=== PATIENT | male | born 1980 | race Caucasian/White ===

== ENCOUNTER 2017-01-24 07:29 | Emergency (ER) | payer BC, OTHER ==
[~2017-01-24] VITALS: Ht 172.7 cm; Wt 104.3 kg
[~2017-01-24 07:29] MED LIST: OMEP20TA8 PO
[2017-01-24 07:57] LABS: BASO # 0.1 x10^3/uL (0.0-0.2); BASO % 1 % (0-3); EOS # 0.1 x10^3/uL (0.0-0.7); EOS % 2 % (0-3); HEMATOCRIT 42.1 % (39.0-53.0); HEMOGLOBIN 14.5 g/dL (13.0-17.5); LYMPH # 1.8 x10^3/uL (1.0-4.8); LYMPH % 25 % (24-48); MEAN CORPUSCULAR HEMOGLOBIN 30 pg (25-35); MEAN CORPUSCULAR HGB CONC 35 g/dL (31-37); MEAN CORPUSCULAR VOLUME 88 fL (79-100); MONO # 0.7 x10^3/uL (0.0-1.1); MONO % 11 % (0-9); NEUT # 4.3 x10^3uL (1.8-7.7); NEUT % 61 % (31-73); PLATELET COUNT 223 x10^3/uL (140-400); RED BLOOD COUNT 4.77 x10^6/uL (4.30-5.70); RED CELL DISTRIBUTION WIDTH 13.1 % (11.5-14.5)
[2017-01-24 08:10] LABS: ALBUMIN 3.8 g/dL (3.4-5.0); ALBUMIN/GLOBULIN RATIO 1.1 (1.0-1.7); CALCIUM 8.3 mg/dL (8.5-10.1); GFR 84.5; POTASSIUM 3.9 mmol/L (3.5-5.1); TOTAL BILIRUBIN 0.3 mg/dL (0.2-1.0); TOTAL PROTEIN 7.4 g/dL (6.4-8.2)
--- NOTE | 2017-01-24 08:19 | RAD ---
Chest, 2 views, 01/24/2017: History: Chest pain, cough Comparison is made to a study from 01/06/2016. The heart size and pulmonary vascularity are normal. No pulmonary infiltrates are seen. There is no evidence of pleural fluid. IMPRESSION: No acute cardiopulmonary abnormality is detected.
--- NOTE | 2017-01-24 08:53 | EKG ---
[address] [address] Test Date: 2017-01-24 Test Time: 07:39:30 Pat Name: ANUJ CHAVARRIA Department: Room: Gender: M Jewel Gauger: KENROY : 1980 Requested By: EILEEN GRIMALDO Order Number: [id number] Reading MD: Measurements Intervals [place] Rate: 85 P: 45 LA: 150 QRS: 43 QRSD: 80 T: 29 QT: 344 QTc: 414 Interpretive Statements SINUS RHYTHM QRS(T) CONTOUR ABNORMALITY CONSIDER ANTEROSEPTAL MYOCARDIAL DAMAGE RI6.01 Unconfirmed report No previous ECG available for comparison
[2017-01-24] MEDS ORDERED: HYDROcodone/APAP 5/325MG 1 TAB TABLET PO ONE (09:00)
[2017-01-24] MEDS ORDERED: IBUPROFEN 400 MG TABLET. PO ONE (09:00)
[2017-01-24 09:04] VITALS: BP 121/71
--- NOTE | 2017-01-24 15:58 | ED.ADGEN ---
Past History Past Medical History: No Pertinent History Past Surgical History: Other Alcohol Use: None Drug Use: None Adult General Chief Complaint Chief Complaint Cough, chest wall pain [facility] HPI Patient is a 36 year old male smoker presents with nonproductive cough, left- sided pleuritic chest wall pain worse with deep breathing and cough. Symptom onset was approximately 10 days ago. This morning, patient's states he states he broke out in a sweat. Patient denies nausea shortness breath, fever chills and sweats. No leg pain or swelling. Patient is not taking any medications or follow-up with a primary care physician. Review of Systems Review of Systems ROS as per HPI. Current Medications Current Medications Current Medications Medications (Trade) Dose Ordered Sig/Vivian Start Time Stop Time Status Last Admin Dose Admin Acetaminophen/ Hydrocodone Bitart (Lortab 5/325) 1 tab 1X ONCE 01/24/17 09:00 01/24/17 09:01 DC 01/24/17 09:00 1 TAB Ibuprofen (Motrin) 400 mg 1X ONCE 01/24/17 09:00 01/24/17 09:01 DC 01/24/17 09:00 400 MG Allergies Allergies Allergies Coded Allergies Type Severity Reaction Last Updated Verified No Known Drug Allergies 01/24/17 No Physical Exam Physical Exam Constitutional: Well developed, well nourished, no acute distress, non-toxic appearance. HENT: Normocephalic, atraumatic, bilateral external ears normal, oropharynx moist, no oral exudates, nose normal. Eyes: PERRLA, EOMI, conjunctiva normal. Neck: Normal range of motion, no tenderness. Cardiovascular:Heart rate regular rhythm, no murmur Lungs & Thorax: Respirations nonlabored, coarse rhonchi bilaterally. Reducible left-sided parasternal chest wall pain, tenderness Abdomen: Bowel sounds normal, soft, no tenderness. Skin: Warm, dry. Back: No tenderness. Extremities: No leg pain, swelling. Neurologic: Alert and oriented X 3, normal motor function, normal sensory function, no focal deficits noted. Psychologic: Affect normal, judgement normal, mood normal. Current Patient Data Vital Signs Vital Signs Date Time Temp Pulse Resp B/P (MAP) Pulse Ox O2 Delivery O2 Flow Rate FiO2 01/24/17 09:04 68 18 121/71 (88) 97 01/24/17 09:00 Room Air 01/24/17 07:39 98.1 Lab Results Laboratory Tests Test 01/24/17 07:44 White Blood Count 7.0 x10^3/uL (4.0-11.0) Red Blood Count 4.77 x10^6/uL (4.30-5.70) Hemoglobin 14.5 g/dL (13.0-17.5) Hematocrit 42.1 % (39.0-53.0) Mean Corpuscular Volume 88 fL (79-100) Mean Corpuscular Hemoglobin 30 pg (25-35) Mean Corpuscular Hemoglobin Concent 35 g/dL (31-37) Red Cell Distribution Width 13.1 % (11.5-14.5) Platelet Count 223 x10^3/uL (140-400) Neutrophils (%) (Auto) 61 % (31-73) Lymphocytes (%) (Auto) 25 % (24-48) Monocytes (%) (Auto) 11 % (0-9) H Eosinophils (%) (Auto) 2 % (0-3) Basophils (%) (Auto) 1 % (0-3) Neutrophils # (Auto) 4.3 x10^3uL (1.8-7.7) Lymphocytes # (Auto) 1.8 x10^3/uL (1.0-4.8) Monocytes # (Auto) 0.7 x10^3/uL (0.0-1.1) Eosinophils # (Auto) 0.1 x10^3/uL (0.0-0.7) Basophils # (Auto) 0.1 x10^3/uL (0.0-0.2) D-Dimer (Olamide) 0.19 mg/L (0.00-0.50) Sodium Level 143 mmol/L (136-145) Potassium Level 3.9 mmol/L (3.5-5.1) Chloride Level 108 mmol/L (98-107) H Carbon Dioxide Level 24 mmol/L (21-32) Anion Gap 11 (6-14) Blood Urea Nitrogen 12 mg/dL (8-26) Creatinine 1.0 mg/dL (0.7-1.3) Estimated GFR (Cockcroft-Gault) 84.5 BUN/Creatinine Ratio 12 (6-20) Glucose Level 85 mg/dL (70-99) Calcium Level 8.3 mg/dL (8.5-10.1) L Total Bilirubin 0.3 mg/dL (0.2-1.0) Aspartate Amino Transferase (AST) 19 U/L (15-37) Alanine Aminotransferase (ALT) 41 U/L (16-63) Alkaline Phosphatase 63 U/L (46-116) Creatine Kinase 109 U/L (39-308) Troponin I Quantitative < 0.017 ng/mL (0-0.055) Total Protein 7.4 g/dL (6.4-8.2) Albumin 3.8 g/dL (3.4-5.0) Albumin/Globulin Ratio 1.1 (1.0-1.7) EKG EKG [EKG: Normal sinus rhythm, rate 85, no acute ST-T wave changes] Radiology/Procedures Radiology/Procedures [Chest x-ray: No acute cardiopulmonary disease per radiology report.] Course & Med Decision Making Course & Med Decision Making Pertinent Labs and Imaging studies reviewed. (See chart for details) [Reproducible chest wall pain concerns that with pleurisy and costochondritis. Other dxs considered, but thought less likely. Recommend smoking cessation PCP follow-up] Final Impression Final Impression [1. bronchitis 2. pleurisy] Problems: Dragon Disclaimer Dragon Disclaimer This electronic medical record was generated, in whole or in part, using a voice recognition dictation system. EILEEN GRIMALDO DO Jan 24, 2017 15:58
== END 2017-01-24 09:05 | disposition home or self-care (01) ==
LOC: ER 07:29
DX: R09.1 Pleurisy (principal); J40 Bronchitis, not specified as acute or chronic
CPT/HCPCS: 36415; 71020; 80053; 82550; 84484; 85027; 85379; 93005; 99285-25

== ENCOUNTER 2021-06-09 13:39 | Observation (INO) | payer OTHER ==
[~2021-06-09] VITALS: Ht 172.7 cm; Wt 100.0 kg
[2021-06-09] MEDS ORDERED: IV NORMAL SALINE 1,000ML 1,000 ML IV ONE (14:00)
[2021-06-09] MEDS ORDERED: INSULIN REGULAR 100 UNIT/ML 3ML VIAL. SQ ONE (14:15)
[2021-06-09] MEDS ORDERED: ONDANSETRON PF 4 MG/2 ML VIAL. IVP PRN (14:45)
[2021-06-09] MEDS ORDERED: DEXTROSE 50% 25 GM / 50ML DISP.SYRIN. IV PRN (14:45)
--- NOTE | 2021-06-09 14:48 | PHYS DOC ---
Past History Past Medical History: No Pertinent History Past Surgical History: No Surgical History Alcohol Use: None Drug Use: None General Adult EDM: Chief Complaint: HYPERGLYCEMIA HPI: HPI: Patient is a [age] year old [sex] who presents with [] Review of Systems: Review of Systems: Constitutional: Denies fever or chills Eyes: Denies change in visual acuity HENT: Denies nasal congestion or sore throat Respiratory: Denies cough or shortness of breath Cardiovascular: Denies chest pain or edema GI: Denies abdominal pain, nausea, vomiting, bloody stools or diarrhea : Denies dysuria Musculoskeletal: Denies back pain or joint pain Integument: Denies rash Neurologic: Denies headache, focal weakness or sensory changes Endocrine: Denies polyuria or polydipsia Lymphatic: Denies swollen glands Psychiatric: Denies depression or anxiety Current Medications: Current Meds: Current Medications Medications (Trade) Dose Ordered Sig/Vivian Start Time Stop Time Status Last Admin Dose Admin Insulin Human Regular (HumuLIN R VIAL) 10 unit 1X ONCE 06/09/21 14:15 06/09/21 14:16 DC Sodium Chloride 1,000 ml @ 1,000 mls/hr 1X ONCE 06/09/21 14:00 06/09/21 14:59 Allergies: Allergies: Allergies Coded Allergies Type Severity Reaction Last Updated Verified No Known Drug Allergies 01/24/17 No Physical Exam: PE: Constitutional: Well developed, well nourished, no acute distress, non-toxic appearance. [] HENT: Normocephalic, atraumatic, bilateral external ears normal, oropharynx moist, no oral exudates, nose normal. [] Eyes: PERRLA, EOMI, conjunctiva normal, no discharge. [] Neck: Normal range of motion, no tenderness, supple, no stridor. [] Cardiovascular:Heart rate regular rhythm, no murmur [] Lungs & Thorax: Bilateral breath sounds clear to auscultation [] Abdomen: Bowel sounds normal, soft, no tenderness, no masses, no pulsatile masses. [] Skin: Warm, dry, no erythema, no rash. [] Back: No tenderness, no CVA tenderness. [] Extremities: No tenderness, no cyanosis, no clubbing, ROM intact, no edema. [] Neurologic: Alert and oriented X 3, normal motor function, normal sensory function, no focal deficits noted. [] Psychologic: Affect normal, judgement normal, mood normal. [] Current Patient Data: Labs: Laboratory Tests Test 06/09/21 13:53 Glucose (Fingerstick) 573 mg/dL (70-99) *H Vital Signs: Vital Signs Date Time Temp Pulse Resp B/P (MAP) Pulse Ox O2 Delivery O2 Flow Rate FiO2 06/09/21 13:54 98.1 103 18 157/85 (109) 95 Room Air EKG: EKG: [] Radiology/Procedures: Radiology/Procedures: [] Heart Score: Risk Factors: Risk Factors: DM, Current or recent (<one month) smoker, HTN, HLP, family history of CAD, obesity. Risk Scores: Score 0 - 3: 2.5% MACE over next 6 weeks - Discharge Home Score 4 - 6: 20.3% MACE over next 6 weeks - Admit for Clinical Observation Score 7 - 10: 72.7% MACE over next 6 weeks - Early Invasive Strategies Course & Med Decision Making: Course & Med Decision Making Pertinent Labs and Imaging studies reviewed. (See chart for details) [] Dragon Disclaimer: Dragon Disclaimer: This electronic medical record was generated, in whole or in part, using a voice recognition dictation system. Departure Departure: Impression: Primary Impression: Hyperglycemia Disposition: ADMITTED INPATIENT Admitting Physician: Jordy May Condition: STABLE Referrals: JORDY MAY MD (PCP) ARAVIND JOYNER DO Jun 09, 2021 14:48
[2021-06-09 14:54] LABS: BASO # 0.1 x10^3/uL (0.0-0.2); BASO % 1 % (0-3); EOS # 0.1 x10^3/uL (0.0-0.7); EOS % 1 % (0-3); HEMATOCRIT 45.6 % (39.0-53.0); HEMOGLOBIN 15.9 g/dL (13.0-17.5); LYMPH # 2.3 x10^3/uL (1.0-4.8); LYMPH % 23 % (24-48); MEAN CORPUSCULAR HEMOGLOBIN 31 pg (25-35); MEAN CORPUSCULAR HGB CONC 35 g/dL (31-37); MEAN CORPUSCULAR VOLUME 89 fL (79-100); MONO # 0.7 x10^3/uL (0.0-1.1); MONO % 7 % (0-9); NEUT # 7.1 x10^3uL (1.8-7.7); NEUT % 69 % (31-73); PLATELET COUNT 293 x10^3/uL (140-400); RED BLOOD COUNT 5.11 x10^6/uL (4.30-5.70); WHITE BLOOD COUNT 10.3 x10^3/uL (4.0-11.0)
--- NOTE | 2021-06-09 14:57 | RAD ---
Single view of the chest. 06/09/2021 2:45 PM Indication: Reason: cough Comparison: Chest radiograph January 24, 2017 Findings: There is no focal consolidation. There is no pleural effusion or pneumothorax. The cardiome diastinal silhouette and pulmonary vasculature are within normal limits. No acute osseous abnormaliti es are seen. Impression: No evidence of acute cardiopulmonary process. Electronically signed by: Santy Kraft MD (06/09/2021 2:55 PM) [id number]
[2021-06-09 15:07] LABS: ALBUMIN/GLOBULIN RATIO 1.1 (1.0-1.7); CALCIUM 8.5 mg/dL (8.5-10.1); GFR 82.3; MAGNESIUM 2.2 mg/dL (1.8-2.4); POTASSIUM 4.2 mmol/L (3.5-5.1); TOTAL BILIRUBIN 0.4 mg/dL (0.2-1.0); TOTAL PROTEIN 7.8 g/dL (6.4-8.2)
[2021-06-09 15:51] LABS: BACTERIA,URINE 0 /HPF (0-FEW); BILIRUBIN,URINE NEG (NEG); CLARITY,URINE CLEAR; COLOR,URINE YELLOW; GLUCOSE,URINE >=1000 mg/dL (NEG); NITRITE,URINE NEG (NEG); RBC,URINE 0 /HPF (0-2); UROBILINOGEN,URINE 0.2 mg/dL (0.2 mg/dL); WBC,URINE 0 /HPF (0-4)
[2021-06-09] MEDS ORDERED: NICOTINE 21MG PATCH. TD ONE (16:45)
--- NOTE | 2021-06-09 17:15 | NUR ---
PATIENT IS 41 Y O MALE ARRIVED VIA EMS. PATIENT IS A/O X 4 ABLE TO AMBULATE. PATIENT WAS ORIENTED TO ROOM AND HOSPITAL POLICIES. PATIENT STATED " THERE ARE BUNCH OF LIARS WORKING IN THIS HOSPITAL". PATIENT WAS UPSET TO HEAR THAT HE CAN'T HAVE ANY VISITORS, STATED THAT HE WAS TOLD IN ED THAT HE COULD HAVE HIS COMING TO SEE HIM. PATIENT WAS INFORMED THAT HE IS NOT ALLOWED TO HAVE VISITORS.
[2021-06-09 17:28] VITALS: BP 168/106
[2021-06-09] MEDS: IV NORMAL SALINE 1,000ML 1,000 ML IV SCH ×2 (17:39→22:45)
[2021-06-09] MEDS: INSULIN LISPRO 300 UNITS/3 ML VIAL. SQ SCH (17:40)
[2021-06-09] MEDS: INSULIN GLARGINE SYRINGE. SQ SCH (21:12)
--- NOTE | 2021-06-09 22:05 | NUR ---
IV infiltrated. telephoned. PT requested no IV. MD agreed and IV discontinued. PT encouraged to continue drinking water.
[2021-06-09 22:39] VITALS: BP 142/87
[2021-06-10 05:36] VITALS: BP 120/78
[2021-06-10] MEDS: INSULIN LISPRO 300 UNITS/3 ML VIAL. SQ SCH (08:15)
[2021-06-10] MEDS: INSULIN GLARGINE SYRINGE. SQ SCH (08:15)
--- NOTE | 2021-06-10 09:51 | NUR ---
Nursing note PT in bed, blood glucose check and insulin administered. assessments done. PT verbalized no order needs.
[2021-06-10 10:48] VITALS: BP 148/93
--- NOTE | 2021-06-10 11:13 | NUR ---
Nursing note PT discharge from the hospital, vitals within normal range. PT alert and oriented x4. PT ambulated off the floor and was picked up by his .
--- NOTE | 2021-06-10 12:31 | HP ---
DATE OF SERVICE: 06/10/2021 ADMIT DATE: 06/09/2021 HISTORY OF PRESENT ILLNESS: This is a 41-year-old gentleman who came in with blurred vision, double vision. The patient has been having problems with his gait. He has been urinating about every 20 minutes or so. He has been having problems focusing as noted. He was quite concerned about this, came in. His pulse was elevated and his labs showed that he had a blood sugar of approximately 570, which is a new onset for him, it is a poorly controlled diabetic, new onset. Blood pressure otherwise was also slightly elevated, 168/106. As a result of this, the patient was admitted for further evaluation, hydration and control of his out of control blood sugar as well as to receive diabetic education. PAST MEDICAL HISTORY: GERD, tobacco abuse. FAMILY HISTORY: Significant for diabetes. ALLERGIES: No known allergies. MEDICATIONS: Prilosec 20 mg a day for GERD. SOCIAL HISTORY: Has about a [id number] history of smoking, occasional alcohol use. Full code. REVIEW OF SYSTEMS: As noted. He denies any headaches. He does have blurred vision, double vision. Does have dry mouth. Does have reflux. Denies chest pain, shortness of breath. Denies abdominal pain. Denies any neurological symptoms otherwise. Denies any tingling or numbness in the feet and basically stable there. PHYSICAL EXAMINATION: GENERAL: He is a pleasant white male, looking stated age of 41. VITAL SIGNS: Blood pressure 168/106, respiratory rate 20, pulse 94, afebrile, 96% on room air. HEENT: The patient's head was atraumatic, normocephalic. Eyes: PERRLA without jaundice. The mouth and throat were normal. NECK: Supple without JVD or thyromegaly. LUNGS: Diminished throughout, but clear. CARDIOVASCULAR: Regular sinus rhythm, S1, S2, without murmur, rub, thrill, or extra sounds. ABDOMEN: Soft, nontender. No rebound or guarding. Positive bowel sounds, no hepatosplenomegaly noted. EXTREMITIES: No clubbing, cyanosis, nor edema. NEUROLOGIC: The patient was alert and oriented x 3. Speech fluent, spontaneous, appropriate. Cranial nerves 2-12 are grossly intact. LABORATORY DATA: The patient's sodium and potassium 134, 4.2, 13 and 1, 573. Albumin stable. Liver enzymes were normal. The patient's white count 10, hemoglobin 15 and 45. Urine did show some ketones, but acetones were negative. ASSESSMENT AND PLAN: The patient was admitted with poorly controlled diabetes, new onset of diabetes, obesity. The patient was admitted, placed on IV fluids, insulin, diabetic education. The patient made good progress with that. Sugars were down in the 200s. He will be continued to be monitored, given glucometer and further advice as an outpatient for his diabetes. ISMA/SYLVAIN/REINA DR: Royal TID: [id number]
--- NOTE | 2021-06-11 14:11 | DS ---
DATE OF DISCHARGE: 06/10/2021 HOSPITAL COURSE: A 41-year-old gentleman came in with elevated blood sugars of 570. The patient was markedly dehydrated. As a result of this, the patient came in and we gave him IV fluids and brought his sugar down with insulin, of course. The patient made much progress. He felt much better. Overall, the patient's blood sugars were in the 500 came down into the 200s and later on were in the low 200s. The patient is COVID negative. Acetone was negative. BUN and creatinine 13 and 1. Sodium and potassium 134 and 4.2, alkaline phosphatase 121. CBC was normal. IMPRESSION: Severe hyperglycemia, new onset of diabetes, poorly controlled diabetes and morbid obesity. Continue on present drug regimen. He will continue on insulin. Make further evaluation on him as an outpatient and make further assessment as an outpatient. Diabetic diet. He received diabetic education here in the hospital. ISMA/VICENTE DR: ISMA/blanche TID: [id number]
[2021-06-13 07:08] LABS: HEMOGLOBIN A1C 13.8 % (4.8-5.6)
== END 2021-06-10 11:12 | disposition home or self-care (01) ==
LOC: ER 13:39 → 1 SOUTH 14:45 → INTOOBSV 14:45 → ER 17:00
PROVIDERS: ADMIT Family Medicine; ATTEND Family Medicine
DX: E11.65 Type 2 diabetes mellitus with hyperglycemia (principal); Z20.822 Contact with and (suspected) exposure to COVID-19; K21.9 Gastro-esophageal reflux disease without esophagitis; F17.210 Nicotine dependence, cigarettes, uncomplicated; E66.01 Morbid (severe) obesity due to excess calories; E86.0 Dehydration; H53.2 Diplopia; Z79.4 Long term (current) use of insulin; Z68.33 Body mass index [BMI] 33.0-33.9, adult
CPT/HCPCS: 36415; 71045; 80053; 81001; 82010; 82947; 83036; 83735; 85025; 87426; 96360; 96361; 96372; 99284; G0378; J1815; J7030; U0003; G0379; 99285-25

== ENCOUNTER → 2021-11-10 | Outpatient (CLI) | payer OTHER ==
[~2021-11-10] MED LIST changes: -OMEP20TA8 PO; +OMEP20TA91 PO
--- NOTE | 2021-11-10 14:43 | RAD ---
XR SHOULDER_LEFT 2+ VIEWS, XR HUMERUS_LT 2 VIEWS, XR LT WRIST 3VIEWS, XR HAND_LEFT 3 VIEWS, XR FOREAR M_LEFT 2 VIEWS 11/10/2021 2:15 PM INDICATION: Slipped and fell at work COMPARISON: Chest radiograph 06/09/2021 TECHNIQUE: 3 views of the left shoulder, 2 views of the left humerus, 2 views of the left forearm, 3 views of the left hand and 3 views of the left wrist are provided. FINDINGS/ IMPRESSION: Left shoulder: There is no acute fracture or dislocation. Joint spaces are maintained. Bone mineraliz ation is within normal limits. Regional soft tissues are within normal limits. There is no soft tissu e gas or osseous erosion. No radiopaque foreign body. Left humerus: There is no acute fracture or dislocation. Joint spaces are maintained. Bone mineraliza tion is within normal limits. Regional soft tissues are within normal limits. There is no soft tissue gas or osseous erosion. No radiopaque foreign body. Left forearm: There is no acute fracture or dislocation. Radial head appears intact. Joint spaces are maintained. Bone mineralization is within normal limits. Regional soft tissues are within normal delcid its. There is no soft tissue gas or osseous erosion. No radiopaque foreign body. Left wrist and hand: There is no acute fracture or dislocation. Carpal bones are intact. Mild joint s pace narrowing with marginal osteophytosis involving the distal interphalangeal joints of the fourth and fifth digits compatible with mild osteoarthrosis. Bone mineralization is within normal limits. Re gional soft tissues are within normal limits. There is no soft tissue gas or osseous erosion. No radi opaque foreign body. Electronically signed by: Heydi Browning MD (11/10/2021 2:41 PM) [id number]
== END ==
LOC: PMG 13:42
PROVIDERS: ATTEND Nurse Practitioner Family
DX: S49.92XA Unspecified injury of left shoulder and upper arm, initial encounter (principal); M25.742 Osteophyte, left hand; X58.XXXA Exposure to other specified factors, initial encounter; Y93.89 Activity, other specified; Y92.89 Other specified places as the place of occurrence of the external cause; Y99.8 Other external cause status
CPT/HCPCS: 73030; 73060; 73090; 73110; 73130